=== PATIENT | female | born 1990 | race Caucasian/White ===

== ENCOUNTER 2020-08-27 06:28 | Inpatient (IN) | payer OTHER ==
[2020-08-24 17:25] LABS: BASOPHIL % 0.3 % (0-2); PLATELET COUNT 280 x10^3mcL (130-400)
[2020-08-24 17:27] LABS: CALCIUM 9.5 mg/dL (8.5-10.1); CARBON DIOXIDE 32.9 mmol/L (21-32); CHLORIDE SERUM 97 mmol/L (98-107); CREATININE SERUM 0.8 mg/dL (0.6-1.0); GFR1 > 60 mL/min; GLUCOSE SERUM 159 mg/dL (74-106); POTASSIUM SERUM 3.8 mmol/L (3.5-5.1); SODIUM SERUM 134 mmol/L (136-145)
[2020-08-24 17:28] LABS: RED CELL DISTRIBUTION WIDTH 15.1 % (11.5-14.5)
[~2020-08-27] VITALS: Ht 152.4 cm; Wt 118.9 kg
[2020-08-27 07:13] VITALS: BP 136/92
[2020-08-27 15:13] VITALS: BP 117/68
[2020-08-27 15:19] VITALS: Ht 152.4 cm; Wt 118.9 kg
[2020-08-27 20:52] VITALS: BP 97/56
[2020-08-28 06:02] VITALS: BP 115/67
[2020-08-28 06:39] LABS: CALCIUM 8.6 mg/dL (8.5-10.1); CARBON DIOXIDE 28.8 mmol/L (21-32); CHLORIDE SERUM 102 mmol/L (98-107); CREATININE SERUM 0.8 mg/dL (0.6-1.0); GFR1 > 60 mL/min; GLUCOSE SERUM 158 mg/dL (74-106); MAGNESIUM 1.9 mg/dL (1.8-2.4); POTASSIUM SERUM 3.7 mmol/L (3.5-5.1); SODIUM SERUM 139 mmol/L (136-145)
[2020-08-28 06:45] LABS: BASOPHIL % 0.1 % (0-2); PLATELET COUNT 262 x10^3mcL (130-400)
[2020-08-28 07:25] LABS: RED CELL DISTRIBUTION WIDTH 15.6 % (11.5-14.5)
[2020-08-28 08:24] VITALS: BP 111/61
[2020-08-28 12:12] VITALS: BP 114/67
[2020-08-28 12:58] VITALS: BP 111/61
== END 2020-08-28 14:39 | disposition home or self-care (01) | DRG 175 ==
LOC: DS 06:28 → MU 06:28 → OR 09:00 → DS 09:00 → MU 15:07 → DU 15:41 → DS 15:42 → DU 08-28 14:39
PROVIDERS: ADMIT Hospitalist; ATTEND Specialist
PROC: 4A023FZ Measurement of Cardiac Rhythm, Percutaneous Approach (ICD-10-PCS; 2020-08-27)
PROC: 4A0234Z Measurement of Cardiac Electrical Activity, Percutaneous Approach (ICD-10-PCS; 2020-08-27)
PROC: 02K83ZZ Map Conduction Mechanism, Percutaneous Approach (ICD-10-PCS; 2020-08-27)
PROC: 02583ZZ Destruction of Conduction Mechanism, Percutaneous Approach (ICD-10-PCS; principal; 2020-08-27 09:00)
DX: I47.1 Supraventricular tachycardia (principal); Z68.43 Body mass index [BMI] 50.0-59.9, adult; E11.9 Type 2 diabetes mellitus without complications; E66.9 Obesity, unspecified; I10 Essential (primary) hypertension; Z71.3 Dietary counseling and surveillance; E78.5 Hyperlipidemia, unspecified; Z20.828 Contact with and (suspected) exposure to other viral communicable diseases
CPT/HCPCS: 93613; 93620; 93621; 93622; 93624; 93662; C1730; C1894; C2630; G0378; J0610; J1644; J1650; J3010; J7030; J7040; Q0092; Q9967